=== PATIENT | female | born 1985 | race Caucasian/White ===

== ENCOUNTER 2016-10-02 16:30 | Inpatient (IN) | payer OTHER ==
[2016-10-02] MEDS ORDERED: LR 1,000 ML IV PRN (17:19)
[2016-10-02] MEDS ORDERED: TERBUTALINE SULFATE 1 MG/ML VIAL IV PRN (17:19)
[2016-10-02] MEDS ORDERED: OXYTOCIN/RINGERS LACTATE 1,000 ML IV PRN (17:19)
[2016-10-02] MEDS ORDERED: OLIVE OIL 118 ML BTL MISC PRN (17:19)
[2016-10-02] MEDS ORDERED: EPSOM SALT 454 GM TP PRN (17:19)
[2016-10-02] MEDS ORDERED: LIDOCAINE 1% 300 MG/30 ML SDV ONE (17:32)
[2016-10-02] MEDS ORDERED: TERBUTALINE SULFATE 1 MG/ML VIAL ONE (17:32)
[2016-10-02] MEDS ORDERED: OLIVE OIL 118 ML BTL ONE (17:32)
[2016-10-02] MEDS ORDERED: AMMONIA AROMATIC 1 EACH AMP IH ONE (17:32)
[2016-10-02] MEDS ORDERED: MISOPROSTOL 200 MCG TAB ONE (17:33)
[2016-10-02] MEDS ORDERED: OXYTOCIN 10 UNIT/ML VIAL ONE (17:33)
[2016-10-02] MEDS ORDERED: OXYTOCIN/RINGERS LACTATE 20 UNIT/1,000 ML BAG IV ONE (17:34)
[2016-10-02 17:38] LABS: % IMMATURE GRANULYOCYTES 0.5 % (0.0-1.1); ABSOLUTE IMMATURE GRANULOCYTES 0.08 10^3/uL (0.00-0.10); ADD DIFF? NO; ADD MORPH? NO; ADD SCAN? NO; ATYPICAL LYMPHOCYTE FLAG 0 (0-99); FRAGMENT RBC FLAG 0 (0-99); HEMATOCRIT 32.9 % (38.0-47.0); HEMOGLOBIN 12.1 g/dL (12.6-16.3); LEFT SHIFT FLG 0 (0-99); LIPEMIA HEMOLYSIS FLAG 90 (0-99); MEAN CELL HEMOGLOBIN 31.1 pg (27.9-34.1); MEAN CELL HEMOGLOBIN CONCENTR. 36.8 g/dL (32.4-36.7); MEAN CELL VOLUME 84.6 fL (81.5-99.8); MEAN PLATELET VOLUME 10.1 fL (8.7-11.7); PLATELET CLUMPS FLAG 0 (0-99); PLATELET COUNT 178 10^3/uL (150-400); RED BLOOD CELL COUNT 3.89 10^6/uL (4.18-5.33); RED CELL DISTRIBUTION WIDTH 12.3 % (11.5-15.2)
[2016-10-02] MEDS ORDERED: ONDANSETRON 4 MG/2 ML VIAL IVP PRN (21:38)
--- NOTE | 2016-10-02 23:47 | GHP ---
[f rep st] PREOP HISTORY AND PHYSICAL DATE OF ADMISSION: 10/02/2016 HISTORY UPON ADMISSION: The patient is a 31-year-old, G1, P0, at 40 weeks today, with the estimated due date of 10/02 established by a sure last menstrual period. The patient had mild contractions t hrough the night, and felt there were increasing through most of the day. She felt she had spontane ous rupture of membranes with clear fluid approximately 10 a.m. Reported contractions really increa sed in intensity and frequency after 5 p.m. Upon first exam here at Labor and Delivery, the patient was 3-4 cm, and has progressed to 5-6 cm. The last exam, after a couple hours, had not shown much change. The patient has been working steadily with contractions, and tried the tub, and now using n itrous for pain management. Fluid continues to remain clear. HOSPITAL COURSE: The patient has been followed with [facility], [place]. She has had mild anemia through the , and increasing oral iron. The patient was noted at 39 weeks to be measuring small, and had an ultrasound performed, which showed adequate fluid, and size equals dates, with an estimated weight of 7 pounds 10 ounces. The cardiac size was incidentally noted to be full in the chest cavity, and this will be mentioned to the patient's elevator supervisor after . We will le t them follow up as clinically indicated. There was nothing else atypical about the cardiac anatomy on the ultrasound. The patient does have a negative blood type, and received RhoGAM in the pregnan cy. LABORATORIES: Maternal blood type A negative, with negative antibody screen in the pregnan cy, and the RhoGAM was given on July 11. The patient's antibody screen today is positive, but si gnificant antibodies have been ruled out. Initial CBC revealed a hematocrit of 35%, with a platelet count of 219,000. The patient's hematocrit in the checks have fluctuated from 35% to 37% . On admission here today, her hematocrit is 32%, and a platelet count a 178,000. RPR nonreactive. Hepatitis B surface antigen negative. HIV negative. Gonorrhea and chlamydia were negative. Urin alysis negative. Urine culture negative. One-hour Glucola was normal. Again, the rubella titer wa s immune. GBS culture was negative. The patient received a Tdap on 08/08. PAST MEDICAL HISTORY: The patient has had varicose vein, significant more on the left than the righ t, and poor circulation in her feet. 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 The patient has had issues with sutures in the past that do not dissolve a s typically expected, and have had to be removed. ALLERGIES: The patient has no known drug allergies. CURRENT MEDICATIONS: Only vitamins and iron. SOCIAL HISTORY: The patient is . Lives with her . The patient is a nonsmoker. No a lcohol or drug use. PHYSICAL EXAM: GENERAL: Upon admission, the patient is a well-developed, well-nourished, white fem krishna in moderate distress with the contractions using the nitrous. VITAL SIGNS: The patient is afeb rile, and her vital signs are all normal. See nursing documentation for full details. heart tones are being checked currently, with an intermittent pattern, and her baseline showed a mild incr ease up to the 150s, but this is improved after some IV fluids. 140s baseline currently, with moder ate variability. Prior to the intermittent monitoring, the patient had a category 1 tracing. Contr actions every 3-5 minutes. PELVIC: Recent vaginal exam revealed 6 cm dilated, 90% effaced at -1 st ation. A forebag was noted, but this was opened digitally, and clear fluid obtained. EXTREMITIES: Nontender. No edema. ASSESSMENT: Intrauterine at 40 weeks' gestation in active labor, but with slow progress. Spontaneous rupture of membranes. Maternal blood type A negative. Anemia on admission. PLAN: We will recheck the cervix in 1-1/2 to 2 hours to see if there is any progress, otherwise we will consider IUPC and potentially Pitocin to augment and improve the labor progress. We will namita nue to give IV fluids as needed, and Zofran if needed, as the patient has been having mild nausea. Epidural if the patient requests. /[id number]/MODL
[2016-10-03] MEDS ORDERED: ACETAMINOPHEN 325 MG TAB PO PRN (01:28)
--- NOTE | 2016-10-03 01:33 | OBDEL ---
Info Type: Vaginal GBS+: No Indications for Delivery: Spontaneous Labor Vaginal Delivery - Labor and Delivery Onset of Contractions Date: 10/02/16 Onset of Contractions Time: 05:00 Onset of Contractions Type: Spontaneous Rupture of Membranes Date: 10/02/16 Rupture of Membranes Time: 10:00 Rupture of Membranes Type: Spontaneous Amniotic Fluid Color: Clear, Meconium Stained (at delivery) Dilation Complete Date: 10/03/16 Dilation Complete Time: 00:32 Placenta Delivery Date: 10/03/16 Placenta Delivery Time: 01:08 Total Hours of Labor: 20 Laceration: 1st Degree (midline) Repair: Other (Specify) (none needed) Vaginal Sponge Count Correct: Yes Vaginal Needle Count Correct: Yes Vaginal Sweep Performed: No EBL: 300 Delivery Events: None - Medications Labor Augmentation/Induction Methods Used: None Data [place] Delivery Date: 10/03/16 Delivery Time: 01:01 NARENDRA: 10/02/16 Gestational Age: 40 week(s) and 1 day(s) Sex of : Female Score (1 Min): 9 Score (5 Min): 9 ICD10 Worksheet Patient Problems: Problems Problem Status Onset (spontaneous vaginal delivery) Acute
--- NOTE | 2016-10-03 01:37 | OBGCSDC ---
General Delivery Information - General Info : 1 Para: 1 Abortions: 0 Delivery Physician/CNM: Diana Dolan Admission Date: 10/02/16 Labs: Patient ABO/Rh A NEGATIVE 10/02/16 17:15 Hct 32.9 % (38.0-47.0) L 10/02/16 17:15 Vaginal - Diagnosis Labor: Spontaneous Presentation at Delivery: Vertex Rupture of Membranes Type: Spontaneous Amniotic Fluid Color: Clear, Meconium Stained (at delivery) Laceration: 1st Degree (midline) Repair: Other (Specify) (none needed) Delivery Events: None - Operations/Procedures L&D Analgesia/Anesthesia Type: Nitrous - Hospital Course Antepartum: S<D at 39 wks, ALEJANDRA and EFW normal - heart appeared full in chest cavity on U/S. Intrapartum: natural progress, used nitrous, complete at 00:32 and pushed <30 min - Delivery Type: Vaginal EBL: 300 Data [place] Delivery Date: 10/03/16 Delivery Time: 01:01 NARENDRA: 10/02/16 Gestational Age: 40 week(s) and 1 day(s) Sex of Infant: Female Score (1 Min): 9 Score (5 Min): 9
[2016-10-03] MEDS: IBUPROFEN 600 MG TAB PO PRN ×4 (01:40→19:35)
[2016-10-03] MEDS: IRON POLYSAC/IRON HEME 28 MG TAB PO SCH ×2 (07:43→19:35)
[2016-10-03] MEDS: DOCUSATE SODIUM 100 MG CAP PO PRN ×2 (07:43→19:35)
--- NOTE | 2016-10-03 10:11 | OBPP ---
Progress Note Assessment/Plan: Assessment: 31 y/o PPD #0 s/p doing well. Plan: Bifera BID secondary to anemia, support and routine PPC. 10/03/16 10:10 Subjective: Pt is doing well this am. She has good pain control with Ibuprofen and only min cramping. She is ambulating and voiding well with min lochia. She is working on breast feeding and making sure the latch is good and not painful. Denies n/v, solomon reg diet. Objective: 10/02/16 17:15 Patient ABO/Rh A NEGATIVE 10/02/16 17:15 Temp Pulse Resp BP Pulse Ox 36.6 C 72 18 112/64 10/03/16 04:30 10/03/16 04:30 10/03/16 04:30 10/03/16 04:30 Uterine Position/Fundal Height: Umbilicus -2 Uterine Tone: Firm Physical Exam - Physical Exam General Appearance: WD/WN, alert, no apparent distress Neck: non-tender, full range of motion, supple Respiratory: chest non-tender, lungs clear, normal breath sounds Cardiac/Chest: regular rate, rhythm Abdomen: normal bowel sounds Extremities: swelling (no), Francisco's sign (neg)
[2016-10-04] MEDS ORDERED: SUCROSE 1 EA UDL ONE (01:24)
[2016-10-04] MEDS: IBUPROFEN 600 MG TAB PO PRN ×4 (02:05→21:15)
[2016-10-04] MEDS: IRON POLYSAC/IRON HEME 28 MG TAB PO SCH ×2 (09:11→21:15)
[2016-10-04] MEDS: DOCUSATE SODIUM 100 MG CAP PO PRN ×2 (09:11→21:15)
--- NOTE | 2016-10-04 18:55 | OBPP ---
Progress Note Assessment/Plan: Assessment: ppd# 1 s/p breast feeding anemia on iron Plan: routine post care iron 10/04/16 18:53 Subjective: patient is doing great. pain is well controlled. normal lochia. denies headache and changes in vision. ambulating. working on breast feeding. using apno nipple cream. right nipple very sore so pumping for today. Objective: 10/04/16 06:20 Patient ABO/Rh A NEGATIVE 10/02/16 17:15 Temp Pulse Resp BP Pulse Ox 36.9 C 66 14 98/61 L 95 10/04/16 09:00 10/04/16 09:00 10/04/16 09:00 10/04/16 09:00 10/04/16 09:00 Physical Exam - Physical Exam General Appearance: WD/WN, alert, no apparent distress Respiratory: chest non-tender, lungs clear, normal breath sounds, respiratory distress Cardiac/Chest: normal peripheral pulses, regular rate, rhythm Abdomen: normal bowel sounds, hypoactive bowel sounds, other (fundus firm and non tender) Extremities: normal range of motion, non-tender, normal inspection, normal capillary refill Skin: normal color, warm/dry Neuro/Psych: no motor/sensory deficits, alert, normal mood/affect, oriented x 3
[2016-10-04 20:37] VITALS: BP 93/50; PULSE 54; RESP 16; TEMP 98; O2SAT 97
[2016-10-05] MEDS: IBUPROFEN 600 MG TAB PO PRN ×2 (03:06→10:54)
--- NOTE | 2016-10-05 07:27 | OBPP ---
Progress Note Assessment/Plan: Assessment: 1) s/p PPD # 2 - pt is stable 2) Anemia - pt is asymptomatic Plan: Plan for d/c home today Instructions reviewed no Rx given Cont PNV, iron and colace Pelvic rest RTC in 4 and 6 weeks for pp visit 10/05/16 07:24 Subjective: Pt seen and examined. Doing well, she is tired. Some cramping relief with Motrin. Moderate lochia. Voiding without difficulty, no BM yet. BF without difficulty. Objective: 10/04/16 06:20 Patient ABO/Rh A NEGATIVE 10/02/16 17:15 Temp Pulse Resp BP Pulse Ox 36.6 C 54 L 16 93/50 L 97 10/04/16 20:00 10/04/16 20:00 10/04/16 20:00 10/04/16 20:00 10/04/16 20:00 Uterine Position/Fundal Height: Umbilicus -2 Uterine Tone: Firm Physical Exam - Physical Exam General Appearance: WD/WN, alert, no apparent distress Respiratory: lungs clear, normal breath sounds Cardiac/Chest: regular rate, rhythm Abdomen: normal bowel sounds, non-tender, soft, flatus (+) Extremities: non-tender, normal inspection Neuro/Psych: alert, normal mood/affect, oriented x 3
--- NOTE | 2016-10-05 07:28 | OBGCSDC ---
General Delivery Information - General Info : 1 Para: 0 Delivery Physician/CNM: Diana Dolan Admission Date: 10/02/16 Labs: Patient ABO/Rh A NEGATIVE 10/02/16 17:15 Hct 33.8 % (38.0-47.0) L 10/04/16 06:20 Vaginal - Diagnosis Labor: Spontaneous Presentation at Delivery: Vertex Rupture of Membranes Type: Spontaneous Amniotic Fluid Color: Clear, Meconium Stained (at delivery) Laceration: 1st Degree (midline) Repair: Other (Specify) (none needed) Delivery Events: None - Operations/Procedures L&D Analgesia/Anesthesia Type: Nitrous - Hospital Course : Uncomplicated. Minimal cramping, relief with Motrin. Moderate lochia. No BM yet. BF without difficulty. - Delivery L&D Analgesia/Anesthesia Type: Nitrous Data [place] Delivery Date: 10/03/16 Delivery Time: 01:01 NARENDRA: 10/02/16 Gestational Age: 40 week(s) and 3 day(s) Sex of Infant: Female [place] Weight (gm): 3320 g Score (1 Min): 9 Score (5 Min): 9 Discharge Information - Discharge Information Discharge Medications: Ibuprofen, Vitamins Condition: Good Instruction/Follow Up: Six Weeks (Four weeks for mood check) Discharge Physician/CNM: Shasha Haywood
[2016-10-05] MEDS: DOCUSATE SODIUM 100 MG CAP PO PRN (10:54)
[2016-10-05] MEDS: IRON POLYSAC/IRON HEME 28 MG TAB PO SCH (10:54)
== END 2016-10-05 12:00 | disposition home or self-care (01) | DRG 775 ==
LOC: FLD 16:30 → FOB 10-03 05:47
PROVIDERS: ADMIT Obstetrics & Gynecology; ATTEND Obstetrics & Gynecology
PROC: 10E0XZZ Delivery of Products of Conception, External Approach (ICD-10-PCS; principal; 2016-10-03)
DX: O99.02 Anemia complicating childbirth (principal); Z37.0 Single live birth; O70.0 First degree perineal laceration during delivery; Z3A.40 40 weeks gestation of pregnancy; D64.9 Anemia, unspecified
CPT/HCPCS: J2590; J3105

== ENCOUNTER → 2016-10-12 | Outpatient (CLI) | payer OTHER | LOC: FLACT 14:04 → EDSTATUS 14:06 | PROVIDERS: ATTEND Obstetrics & Gynecology | DX: Z39.1 Encounter for care and examination of lactating mother (principal); O92.79 Other disorders of lactation | CPT/HCPCS: G0463 ==

== ENCOUNTER → 2016-12-27 | Outpatient (CLI) | payer OTHER | LOC: FLACT 10:06 | PROVIDERS: ATTEND Obstetrics & Gynecology | DX: O92.79 Other disorders of lactation (principal) | CPT/HCPCS: G0463 ==